=== PATIENT | male | born 1940 | race Caucasian/White ===

== ENCOUNTER 2023-12-21 09:31 | Inpatient (IN) | payer MEDICARE ==
[~2023-12-21] VITALS: Ht 182.9 cm; Wt 62.0 kg
[2023-12-21] VITALS (62 sets, daily range): BP systolic 87–144; BP diastolic 58–104
[2023-12-21 10:39] LABS: BASO% 0.5 % (0-3); HEMATOCRIT 47.1 % (39.0-50.0); HEMOGLOBIN 15.4 g/dl (14.0-18.0); IMMATURE GRANULOCYTES 0.4 % (0.0-5.0); LYMPH% 19.2 % (15-41); MEAN CELL VOLUME 97.3 fL CALC (80.0-100.0); MEAN CORPUSCULAR HGB 31.8 pG CALC (26.0-32.0); MEAN CORPUSCULAR HGB CONC 32.7 g/dL CAL (32.0-36.0); MONO% 10.3 % (2-13); NEUT# 3.91 thou/uL (1.82-7.42); NEUT% 69.6 % (42-76); RED BLOOD COUNT 4.84 mill/uL (4.70-6.10); RED CELL DISTRI WIDTH 12.9 % (11.5-15.5)
[2023-12-21 11:00] LABS: ALBUMIN 3.9 g/dL (3.2-5.0); ALKALINE PHOSPHATASE 50 u/l (38-126); ANION GAP 15 (6-22 (CALC)); BILIRUBIN, TOTAL 0.6 mg/dL (0.2-1.3); BUN 21 mg/dL (8-23); BUN/CREATININE RATIO 19 (12-20 (CALC)); CARBON DIOXIDE 24 mmol/l (22-30); CHLORIDE 104 mmol/l (95-108); CREATININE 1.1 mg/dL (0.7-1.3); GFR FOR AFR.AMER. > 60 ML/MIN (>=60 (CALC)); GFR OTHER RACES > 60 ML/MIN (>=60 (CALC)); POTASSIUM 4.6 mmol/l (3.5-5.1); SGOT/AST 50 u/l (19-48); SODIUM 138 mmol/l (137-146); TOTAL PROTEIN 6.7 g/dL (6.3-8.2)
[2023-12-21 12:55] LABS: URINE BLOOD DIPSTICK Small (NEGATIVE); URINE GLUCOSE - DIPSTICK Negative (NEGATIVE); URINE KETONE 15 mg/dL (NEGATIVE); URINE LEUK ESTERASE Negative (NEGATIVE); URINE NITRITE - DIPSTICK Negative (Negative); URINE PH 5.5 (4.5-8.0); URINE PROTEIN - DIPSTICK Trace mg/dL (NEG-TRACE); URINE UROBILINOGEN - DIPSTICK 0.2 E.U./dL (0.2)
[2023-12-21 12:57] LABS: URINE COLOR Yellow
[2023-12-22] VITALS (86 sets, daily range): BP systolic 64–139; BP diastolic 46–92
[2023-12-22 06:24] LABS: BASO% 0.4 % (0-3); HEMATOCRIT 42.6 % (39.0-50.0); IMMATURE GRANULOCYTES 0.2 % (0.0-5.0); MEAN CELL VOLUME 97.7 fL CALC (80.0-100.0); MEAN CORPUSCULAR HGB 32.1 pG CALC (26.0-32.0); MEAN CORPUSCULAR HGB CONC 32.9 g/dL CAL (32.0-36.0); MONO% 13.4 % (2-13); NEUT# 2.91 thou/uL (1.82-7.42); RED BLOOD COUNT 4.36 mill/uL (4.70-6.10)
[2023-12-22 07:28] LABS: BUN 13 mg/dL (8-23); BUN/CREATININE RATIO 18 (12-20 (CALC)); CARBON DIOXIDE 20 mmol/l (22-30); CHLORIDE 110 mmol/l (95-108); CREATININE 0.8 mg/dL (0.7-1.3); GFR FOR AFR.AMER. > 60 ML/MIN (>=60 (CALC)); GFR OTHER RACES > 60 ML/MIN (>=60 (CALC)); MAGNESIUM 1.9 mg/dL (1.6-2.3); SODIUM 138 mmol/l (137-146)
[2023-12-22 07:31] LABS: ANION GAP 12 (6-22 (CALC)); POTASSIUM 3.5 mmol/l (3.5-5.1)
[2023-12-23] VITALS (42 sets, daily range): BP systolic 81–143; BP diastolic 50–95
[2023-12-23 05:19] LABS: BASO% 0.5 % (0-3); HEMOGLOBIN 13.5 g/dl (14.0-18.0); IMMATURE GRANULOCYTES 0.8 % (0.0-5.0); MEAN CELL VOLUME 97.6 fL CALC (80.0-100.0); MEAN CORPUSCULAR HGB 32.1 pG CALC (26.0-32.0); MEAN CORPUSCULAR HGB CONC 32.9 g/dL CAL (32.0-36.0); MONO% 10.7 % (2-13); NEUT# 2.1 thou/uL (1.82-7.42); RED BLOOD COUNT 4.2 mill/uL (4.70-6.10); RED CELL DISTRI WIDTH 12.9 % (11.5-15.5)
[2023-12-23 05:34] LABS: BUN 10 mg/dL (8-23); BUN/CREATININE RATIO 13 (12-20 (CALC)); CHLORIDE 108 mmol/l (95-108); CREATININE 0.8 mg/dL (0.7-1.3); GFR FOR AFR.AMER. > 60 ML/MIN (>=60 (CALC)); GFR OTHER RACES > 60 ML/MIN (>=60 (CALC)); SODIUM 140 mmol/l (137-146)
[2023-12-23 05:46] LABS: ANION GAP 10 (6-22 (CALC)); CARBON DIOXIDE 26 mmol/l (22-30); POTASSIUM 4.4 mmol/l (3.5-5.1)
[2023-12-23] MEDS ORDERED: OSELTAMIVIR PHO30 MG PO (07:57)
[2023-12-23] MEDS ORDERED: ELIQUIS5 MG PO (07:57)
[2023-12-23] MEDS ORDERED: DIGOXIN0.125 MG PO (07:58)
[2023-12-23] MEDS ORDERED: TOPROL XL25 M1 PO (07:58)
== END 2023-12-23 10:10 | disposition home or self-care (01) | DRG 312 ==
LOC: ED 09:31 → ED-I 12:00 → ED 13:11 → ICU 13:12
PROVIDERS: Family Medicine; ADMIT Student in an Organized Health Care Education/Training Program; ATTEND Student in an Organized Health Care Education/Training Program
DX: I95.1 Orthostatic hypotension (principal); I48.91 Unspecified atrial fibrillation; J11.1 Influenza due to unidentified influenza virus with other respiratory manifestations; E86.0 Dehydration; I44.7 Left bundle-branch block, unspecified; Z20.822 Contact with and (suspected) exposure to COVID-19
CPT/HCPCS: J1160

== ENCOUNTER 2024-12-06 16:25 | Observation (INO) | payer MEDICARE ==
[~2024-12-06] VITALS: Ht 182.9 cm; Wt 62.1 kg
[2024-12-06] VITALS (22 sets, daily range): BP systolic 46–156; BP diastolic 21–102
[~2024-12-06 16:25] MED LIST: DIGOXIN0.125 MG PO; ELIQUIS5 MG PO; OSELTAMIVIR PHO30 MG PO; TOPROL XL25 M1 PO
[2024-12-06] MEDS ORDERED: TOPROL XL50 MG PO (17:15)
[2024-12-06] MEDS ORDERED: cefTRIAXone SODIUM 2 GM in SODIUM CHLORIDE 0.9% 100 ML IV ONE (17:20)
[2024-12-06] MEDS ORDERED: ACETAMINOPHEN 325 MG/TAB PO ONE (17:20)
[2024-12-06] MEDS ORDERED: SODIUM CHLORIDE 0.9% 1,000 ML IV ONE (17:20)
[2024-12-06 17:49] LABS: BASO% 0.3 % (0-3); HEMATOCRIT 41.2 % (39.0-50.0); HEMOGLOBIN 13.5 g/dl (14.0-18.0); IMMATURE GRANULOCYTES 0.4 % (0.0-5.0); LYMPH% 10.1 % (15-41); MEAN CELL VOLUME 97.4 fL CALC (80.0-100.0); MEAN CORPUSCULAR HGB 31.9 pG CALC (26.0-32.0); MEAN CORPUSCULAR HGB CONC 32.8 g/dL CAL (32.0-36.0); MONO% 13.3 % (2-13); NEUT# 8.24 thou/uL (1.82-7.42); NEUT% 75.9 % (42-76); RED BLOOD COUNT 4.23 mill/uL (4.70-6.10); RED CELL DISTRI WIDTH 12.3 % (11.5-15.5)
[2024-12-06 18:00] LABS: ALBUMIN 4.4 g/dL (3.2-5.0); POTASSIUM 4.2 mmol/l (3.5-5.1)
[2024-12-06 18:01] LABS: BILIRUBIN, TOTAL 1.5 mg/dL (0.2-1.3); TOTAL PROTEIN 8.3 g/dL (6.3-8.2)
[2024-12-06 18:31] LABS: URINE BLOOD DIPSTICK Moderate (NEGATIVE); URINE GLUCOSE - DIPSTICK Negative (NEGATIVE); URINE KETONE Trace mg/dL (NEGATIVE); URINE LEUK ESTERASE Negative (NEGATIVE); URINE NITRITE - DIPSTICK Negative (Negative); URINE PROTEIN - DIPSTICK 100 mg/dL (NEG-TRACE); URINE SPECIFIC GRAVITY 1.025
[2024-12-06 18:33] LABS: URINE COLOR Dark yellow
[2024-12-06 18:37] LABS: URINE SQUAMOUS EPITHELIAL CELL RARE EPI/hpf (0-FEW); URINE TRANSITIONAL EPI. CELLS RARE hpf; URINE WBC 0-2 WBC/hpf (0-5)
[2024-12-06] MEDS ORDERED: ACETAMINOPHEN 325 MG/TAB PO PRN (20:15)
[2024-12-06] MEDS ORDERED: MAGNESIUM HYDROXIDE 30 ML UDC PO PRN (20:15)
[2024-12-06] MEDS ORDERED: SODIUM CHLORIDE 0.9% 1,000 ML IV PRN (20:15)
[2024-12-06] MEDS ORDERED: CEFEPIME HYDROCHLORIDE 2 GM in SODIUM CHLORIDE 0.9% 100 ML IV SCH (20:20)
[2024-12-06] MEDS ORDERED: VANCOMYCIN HCL 1 GM in SODIUM CHLORIDE 0.9% 250 ML IV ONE (20:20)
[2024-12-06] MEDS ORDERED: ENOXAPARIN SODIUM 40 MG/0.4 ML SYR SC SCH (21:00)
[2024-12-06] MEDS ORDERED: APIXABAN BASE 5 MG TAB PO SCH (21:00)
[2024-12-06] MEDS ORDERED: VANCOMYCIN HCL 1 GM/VIAL IV ONE (21:48)
[2024-12-06] MEDS ORDERED: SODIUM CHLORIDE 0.9% 500 ML IV ONE (21:49)
[2024-12-07] VITALS (8 sets, daily range): BP systolic 120–139; BP diastolic 59–69
[2024-12-07] MEDS ORDERED: METOPROLOL SUCCINATE 50 MG/TAB PO SCH (09:00)
[2024-12-07] MEDS ORDERED: VANCOMYCIN HCL 1 GM in SODIUM CHLORIDE 0.9% 250 ML IV SCH (23:00)
[2024-12-08] VITALS (9 sets, daily range): BP systolic 129–152; BP diastolic 63–79
[2024-12-08 05:29] LABS: BASO% 0.3 % (0-3); EOS% 0.1 % (0-8); IMMATURE GRANULOCYTES 0.4 % (0.0-5.0); LYMPH% 7.3 % (15-41); MEAN CELL VOLUME 98.9 fL CALC (80.0-100.0); MEAN CORPUSCULAR HGB CONC 33.4 g/dL CAL (32.0-36.0); MONO% 11.3 % (2-13); NEUT# 9.31 thou/uL (1.82-7.42); NEUT% 80.6 % (42-76); RED BLOOD COUNT 3.48 mill/uL (4.70-6.10); RED CELL DISTRI WIDTH 12.3 % (11.5-15.5)
[2024-12-08 05:30] LABS: CREATININE 0.8 mg/dL (0.7-1.3); MAGNESIUM 1.9 mg/dL (1.6-2.3); POTASSIUM 3.9 mmol/l (3.5-5.1)
[2024-12-08 05:31] LABS: TOTAL PROTEIN 5.9 g/dL (6.3-8.2)
[2024-12-08 05:39] LABS: HEMATOCRIT 34.4 % (39.0-50.0); HEMOGLOBIN 11.5 g/dl (14.0-18.0)
[2024-12-08 12:23] LABS: MAGNESIUM 1.8 mg/dL (1.6-2.3)
[2024-12-08 12:52] LABS: TSH, 3RD GENERATION 1.39 uIU/mL (0.47 - 4.68)
[2024-12-09 00:58] VITALS: BP 149/74
[2024-12-09 05:05] LABS: BASO% 0.5 % (0-3); EOS% 1.7 % (0-8); HEMATOCRIT 34.1 % (39.0-50.0); HEMOGLOBIN 11.7 g/dl (14.0-18.0); IMMATURE GRANULOCYTES 0.3 % (0.0-5.0); LYMPH% 10.4 % (15-41); MEAN CELL VOLUME 95.5 fL CALC (80.0-100.0); MEAN CORPUSCULAR HGB 32.8 pG CALC (26.0-32.0); MEAN CORPUSCULAR HGB CONC 34.3 g/dL CAL (32.0-36.0); MONO% 10.2 % (2-13); NEUT# 7.5 thou/uL (1.82-7.42); NEUT% 76.9 % (42-76); RED BLOOD COUNT 3.57 mill/uL (4.70-6.10); RED CELL DISTRI WIDTH 12.2 % (11.5-15.5)
[2024-12-09 05:38] VITALS: BP 135/68
[2024-12-09 05:42] LABS: ALBUMIN 2.8 g/dL (3.2-5.0); BILIRUBIN, TOTAL 0.7 mg/dL (0.2-1.3); CREATININE 0.7 mg/dL (0.7-1.3); POTASSIUM 3.8 mmol/l (3.5-5.1); TOTAL PROTEIN 5.9 g/dL (6.3-8.2)
[2024-12-09 06:07] VITALS: BP 152/78
[2024-12-09 06:51] VITALS: BP 152/78
[2024-12-09] MEDS ORDERED: DOXYCYCLINE100 MG PO (09:55)
[2024-12-09] MEDS ORDERED: VANCOMYCIN HCL 1 GM in SODIUM CHLORIDE 0.9% 250 ML IV SCH (11:00)
[2024-12-09 11:14] VITALS: BP 138/67
== END 2024-12-09 14:37 | disposition home or self-care (01) ==
LOC: ED 16:25 → ED-I 18:50 → ED 19:00 → MS2 19:01
PROVIDERS: Family Medicine; Nurse Practitioner Family; ADMIT Internal Medicine; ATTEND Internal Medicine
DX: L03.116 Cellulitis of left lower limb (principal); I47.29 Other ventricular tachycardia; I10 Essential (primary) hypertension; I48.0 Paroxysmal atrial fibrillation; F17.290 Nicotine dependence, other tobacco product, uncomplicated; Z79.01 Long term (current) use of anticoagulants
CPT/HCPCS: J0692; J0696; J3370